=== PATIENT | female | born 2000 ===

== ENCOUNTER 2023-10-07 13:41 | Emergency (ER) | payer OTHER, SELFPAY ==
[2023-10-07 13:44] VITALS: BP 131/74; BMI 24.8
[2023-10-07 14:03] LABS: % Basophils 0.5 % (0-2); % Eosinophils 2.1 % (0-6); % Immature Granulocytes 0.2 % (0-0.5); % Monocytes 4.5 % (1.7-9.3); % Neutrophils 68.7 % (42.2-75.2); Absolute Basophils 0.1 10^3/uL (0-0.2); Absolute Eosinophils 0.2 10^3/uL (0-0.7); Absolute Lymphocytes 2.7 10^3/uL (1.2-3.4); Absolute Monocytes 0.5 10^3/uL (0.1-0.6); Absolute Neutrophils 7.6 10^3/uL (1.4-6.5); Hematocrit 36.2 % (37.0-47.0); Hemoglobin 12.9 g/dL (12.0-16.0); Mean Corp Hgb Conc. 35.6 g/dL (33.0-37.0); Mean Corpuscular Volume 89.8 fL (81.0-99.0); Mean Platelet Volume 8.7 fL (7.4-10.4); Nucleated Red Blood Cells % 0 %; Platelet Count 345 10^3/uL (130-400); Red Blood Cell Count 4.03 10^6/uL (4.20-5.40); Red Cell Dist. Width 12.2 % (11.5-14.5); White Blood Cell Count 11.1 10^3/uL (4.8-10.8)
[2023-10-07 14:16] LABS: HCG, Serum Qualitative Screen Positive
[2023-10-07 14:22] LABS: Urine Albumin Negative (Neg - Trace); Urine Bilirubin 1+ (Negative); Urine Character Clear (Clear); Urine Color Yellow; Urine Glucose Negative (Negative); Urine Ketone Negative (Negative); Urine Leukocyte 1+ (Negative); Urine Nitrite Negative (Negative); Urine Occult Blood 3+ (Negative); Urine Specific Gravity 1.015 (<1.030); Urine Urobilinogen Negative (Neg - 1+)
[2023-10-07 14:30] LABS: Urine Bacteria Few (Negative); Urine Mucus Few; Urine Red Blood Cell 0-2 /HPF (0-2)
[2023-10-07 16:00] VITALS: BP 125/76
[2023-10-07 18:00] VITALS: BP 130/71
--- NOTE | 2023-10-07 21:18 | ED.GENMED ---
History of Present Illness
General
Chief Complaint: Urinary Symptoms
Source: patient
Exam Limitations: none
Time Seen by Provider: 10/07/23 15:44
Nursing documentation reviewed up to this point in time: agreed with
Travel History
Have you had any contact with someone who has COVID-19?: No
Do you have any symptoms of coronavirus? Fever > 100 degrees, chills, cough, shortness of breath, sore throat, loss of taste or smell, muscle aches, or headache?: No
History of Present Illness
History of Present Illness:
Patient to ED with concern for UTI. Reports urinary frequency. She is also concerned about vaginal bleeding. States 2 weeks ago she had an . States she was 5 weeks . Reports ording medications on line. Took 1 pill on day one and
4 pills on day 2. SHe had heavy bleeding for the first few days and reports bleeding continues to lessen. Now notes blood on tissue after wiping. Brought to ED by sig other for eval. No fever/chills, n/v/d
Past History
Past History
ED Past Medical History: Psychiatric
ED Past Surgical History: None
Review of Systems
Review of Systems
Allergies reviewed?: Yes
All Other Systems: ROS reviewed and negative except as documented in HPI and ROS
Constitutional: Reports no symptoms
EENT: Reports no symptoms
Respiratory: Reports no symptoms
Cardiac: Reports no symptoms
ABD/GI: Reports no symptoms
: Reports frequency, urgency and bleeding
Musculoskeletal: Reports no symptoms
Skin: Reports no symptoms
Neurological: Reports no symptoms
Psychiatric: Reports no symptoms
Phy Exam
General Physical Exam
General Presentation: well appearing
General age: appears stated age
General Skin: warm and dry
General Habitus: normal
General Mental: alert
Pulmonary Exam
Pulmonary Exam: lungs clear and no respiratory distress
Gastrointestinal Exam
Gastrointestinal Exam: normal bowel sounds, non tender, soft, no organomegaly and no pulsatile mass
Musculoskeletal Exam
Musculoskeletal Exam: full ROM and neuro vasc intact
Skin Exam
Skin Exam: normal color, warm/dry and no rash
Psychiatric Exam
Psychiatric Exam: normal mood/affect
Course
Orders/Labs/Results
Orders:
Orders
10/07/23 13:49
Test Result ONCE
10/07/23 13:53
Complete Blood Count/With Diff Urgent
HCG, Serum Qualitative Screen Urgent
10/07/23 13:54
Type+Screen Urgent
Urinalysis Reflex To Culture Urgent
Date Specimen was Collected: 10/07/23
Time Specimen was Collected: 13:50
Urine Microscopic Reflex Cult Urgent
Urine Culture Urgent
NOAH Source: U
Specimen Description:
Date Specimen was Collected: 10/07/23
Time Specimen was Collected: 13:50
10/07/23 15:46
Add On- LAB Urgent
Tests Added?: HCG serum quantitative
10/07/23 16:19
US W Transvaginal Urgent
Comment: MEDICATION AB 09-23-23
Reason For Exam: bleeding
10/07/23 18:54
HCG,SERUM [Beta HCG Quantitative] Urgent
Is this a screen?: No
Abnormal Lab Results
10/07/23 10/07/23
13:53 13:54
WBC 11.1 H 10^3/uL
(4.8-10.8)
RBC 4.03 L 10^6/uL
(4.20-5.40)
Hct 36.2 L %
(37.0-47.0)
MCH 32.0 H pg
(27.0-31.0)
Absolute Neuts (auto) 7.6 H 10^3/uL
(1.4-6.5)
Ur Occult Blood Reflex 3+ A
(Negative)
Urine Bilirubin 1+ A
(Negative)
Leukocyte Esterase Rfl 1+ A
(Negative)
Urine Bacteria (Reflex) Few A
(Negative)
10/07/23 13:53
Vital Signs
Initial and Last Documented VS:
Initial Vital Signs
Temp Pulse Resp BP Pulse Ox
98.2 F 89 16 131/74 99
10/07/23 13:44 10/07/23 13:44 10/07/23 13:44 10/07/23 13:44 10/07/23 13:44
Last Documented Vital Signs
Temp Pulse Resp BP Pulse Ox
98.1 F 81 18 130/71 99
10/07/23 18:00 10/07/23 18:00 10/07/23 18:00 10/07/23 18:00 10/07/23 18:00
*Radiology
Radiology exam reviewed: radiology read reviewed
*Pulse Oximetry
Patient hypoxic: no
*Critical Care Note
Total Time (30-74mins, 75-104mins- exclusive of procedures): Not Applicable
ED Attending Note
-
Portions of this chart may have been created with voice recognition software.� Occasional wrong word or��sound alike� substitutions may have occurred due to the inherent limitations of voice recognition software.
Discharge Plan
Departure
Patient Disposition: Home (Routine Discharge)
Date of Disposition: 10/07/23
Time of Disposition: 19:35
Patient with high blood pressure during this ER visit?: No
Condition: Good
Covid-19: Not Applicable
Discharge Problem:
Abnormal vaginal bleeding
Instructions: Pelvic Pain (DC)
Prescriptions:
No Action
bupropion HCl [Wellbutrin XL] 300 mg Tablet Extended Release 24 Hr
300 mg PO DAILY
propranolol [Inderal] 60 mg Tablet
60 mg PO DAILY
dextroamphetamine-amphetamine [Adderall XR] 10 mg Capsule,Extended Release 24hr
10 mg PO DAILY
June Fe 24 1 mg-20 mcg (24)/75 mg (4) Tablet
1 tab PO DAILY
lubiprostone [Amitiza] 8 mcg Capsule
8 mcg PO BID
Referrals:
Hanna Caro DO [Family Provider] -
Activity Restrictions/Additional Instructions:
Follow up with your deportation examiner next week.
Interventions
Interventions:
*Risk Screen - Suicide Last Done: 10/07/23 13:44
*General Assessment Last Done: 10/07/23 19:42
*Neglect/Abuse Screening Last Done: 10/07/23 13:44
ED- Fall Risk Assessment Last Done: 10/07/23 19:42
*ED COVID-19 Vaccine History Last Done: 10/07/23 13:44
*Nursing Disposition Last Done: 10/07/23 19:47
ED-Female Genitourinary Assessment Last Done: 10/07/23 19:42
Discharge Date and Time
Discharge Date/Time: 10/07/23 19:48
== END 2023-10-07 19:48 | disposition home or self-care (01) ==
LOC: EMR 13:41
PROVIDERS: Emergency Medicine; Nurse Practitioner; EMERGENCY PHYSICIAN Emergency Medicine; FAMILY PHYSICIAN Family Medicine
DX: N93.9 Abnormal uterine and vaginal bleeding, unspecified (principal)
CPT/HCPCS: 99284; 76801; 76817; 81003; 81015; 84702; 84703; 85025; 86850; 86900; 86901; 87086